=== PATIENT | male | born 1980 | race Two or more races ===

== ENCOUNTER 2022-10-02 09:04 | Emergency (ER) | payer SELFPAY ==
[~2022-10-02] VITALS: Ht 188 cm; Wt 123.0 kg
[2022-10-02 09:40] VITALS: BP 153/100
[2022-10-02] MEDS ORDERED: KETOROLAC TROMETH 60MG/2ML VIAL IM ONE (11:30)
[2022-10-02] MEDS ORDERED: HYDROcodone-ACET 10/325MG TAB PO ONE (11:30)
[2022-10-02] MEDS ORDERED: IBUP800T27 PO (12:47)
[2022-10-02] MEDS ORDERED: CYCL-837 PO (12:47)
== END 2022-10-02 12:47 | disposition home or self-care (01) ==
LOC: ER 09:04
DX: S33.5XXA Sprain of ligaments of lumbar spine, initial encounter (principal); X50.1XXA Overexertion from prolonged static or awkward postures, initial encounter; Y93.89 Activity, other specified; Y92.89 Other specified places as the place of occurrence of the external cause; Y99.8 Other external cause status
CPT/HCPCS: 74176; 96372; 99285; J1885